=== PATIENT | female | born 1985 | race Caucasian/White ===

== ENCOUNTER 2023-12-18 05:27 | Emergency (ER) | payer OTHER, SELFPAY ==
[2023-12-18 05:29] VITALS: BP 127/88; BMI 30.1
[2023-12-18 05:30] VITALS: BP 127/88
[2023-12-18 06:00] VITALS: BP 121/90
[2023-12-18] MEDS: NSS 1000 IV (06:44)
[2023-12-18 06:49] LABS: % Basophils 0.1 % (0-2); % Eosinophils 1.6 % (0-6); % Immature Granulocytes 0.4 % (0-0.5); % Lymphocytes 14.4 % (20.5-51.1); % Monocytes 6.4 % (1.7-9.3); % Neutrophils 77.1 % (42.2-75.2); Absolute Eosinophils 0.2 10^3/uL (0-0.7); Absolute Lymphocytes 1.4 10^3/uL (1.2-3.4); Absolute Monocytes 0.6 10^3/uL (0.1-0.6); Absolute Neutrophils 7.2 10^3/uL (1.4-6.5); Hematocrit 42.6 % (37.0-47.0); Mean Corp Hgb Conc. 35.2 g/dL (33.0-37.0); Mean Corpuscular Hgb 29.4 pg (27.0-31.0); Mean Corpuscular Volume 83.5 fL (81.0-99.0); Mean Platelet Volume 10.5 fL (7.4-10.4); Nucleated Red Blood Cells % 0 %; Platelet Count 279 10^3/uL (130-400); White Blood Cell Count 9.4 10^3/uL (4.8-10.8)
[2023-12-18 07:01] LABS: HCG, Serum Qualitative Screen Negative
[2023-12-18 07:04] LABS: ALT (SGPT) 13 U/L (0-35); AST (SGOT) 18 U/L (14-36); Albumin 4.7 g/dl (3.5-5.0); Alkaline Phosphatase 46 U/L (38-126); Blood Urea Nitrogen 11 mg/dl (7-17); Carbon Dioxide 24 mmol/L (22-30); Chloride 104 mmol/L (98-107); Estimated Creatinine Clearance 102 ml/min; Glucose 112 mg/dl (70-99); Lipase 58 U/L (23-300); Magnesium 1.7 mg/dl (1.6-2.3); Potassium 4.2 mmol/L (3.5-5.1); Sodium 140 mmol/L (135-145); Total Bilirubin 0.9 mg/dl (0.2-1.3); Total Protein 7.9 g/dl (6.3-8.2); eGFR > 60.00
[2023-12-18 07:06] LABS: COVID-19 Antigen Negative (Negative)
--- NOTE | 2023-12-18 07:10 | ED.GENMED ---
History of Present Illness
General
Chief Complaint: Abdominal Symptoms
Source: patient and family (Mother)
Exam Limitations: none
Time Seen by Provider: 12/18/23 06:04
Nursing documentation reviewed up to this point in time: agreed with
Travel History
Have you had any contact with someone who has COVID-19?: No
Do you have any symptoms of coronavirus? Fever > 100 degrees, chills, cough, shortness of breath, sore throat, loss of taste or smell, muscle aches, or headache?: No
History of Present Illness
History of Present Illness:
38-year-old female with a past medical history of irritable bowel syndrome, anxiety who presents to the emergency department accompanied by her mother for evaluation of abdominal pain with nausea, vomiting, diarrhea. Patient reports onset of
symptoms Monday morning (this morning is day 3 of symptoms). She reports that she woke up with nausea and has had essentially consistent nausea with diffuse abdominal pain since. She reports pain is mostly in the upper abdomen, consistent
pressure pain with occasional cramping. Associated with 8 episodes of nonbloody, nonbilious vomiting. She says she has had greater than 20 episodes of nonbloody diarrhea. She says that symptoms do not seem to be improving and so she came to the
emergency room to be assessed. She has not had any chest pain or shortness of breath. She has not had any urinary symptoms. Denies any vaginal bleeding. She denies any fevers or chills. She does report that she had prior episode of colitis in
the summer associated with diarrhea. Of note, patient reports that she is on Wegovy/semaglutide�she says she was on Wegovy for about 9 months for weight loss and that about a month ago her insurance stopped covering it and so she had been off it
for the past 3 weeks. She says that this past Monday she was started on generic semaglutide for her first dose.
Past History
Past History
ED Past Medical History: Psychiatric (anxiety) and Other (IBS, esophagitis, gastritis)
ED Past Surgical History: Appendectomy
Social History
Tobacco: Non-smoker
Alcohol: Occasional
Drug: None
Personal:
Living: with family
Employment: Employed (teacher)
Family History
Family History: Hypertension
Review of Systems
Review of Systems
All Other Systems: ROS reviewed and negative except as documented in HPI and ROS
Constitutional: Reports fatigue; Denies fever or chills
EENT: Denies sore throat or runny nose
Respiratory: Denies cough or trouble breathing
Cardiac: Denies chest pain or palpitations
ABD/GI: Reports abdominal pain, nausea, vomiting and diarrhea; Denies bloody stools
: Denies dysuria, frequency, flank pain or bleeding
Musculoskeletal: Denies neck pain or back pain
Neurological: Denies dizzy or headache
Phy Exam
Physical Exam
Physical Exam:
General: Awake, alert, oriented x3; no acute distress
Head: Normocephalic, atraumatic
Eyes: Conjunctiva normal, sclera anicteric
Throat: Airway intact, slightly dry mucous membranes
Neck: Trachea midline, supple without meningismus
Lungs: Clear to auscultation bilaterally, no wheezing, rales, rhonchi
Heart: Regular rate and rhythm, no murmurs, gallops, or rubs
Abd: Soft, non distended, mild diffuse tenderness with no palpable masses, no peritoneal signs
Neuro: Cranial nerves grossly intact, speech fluid
Skin: no rash
Extremities: No edema in extremities, equal pulses in all extremities
Scores
Heart Failure Risk
Heart Failure Risk Score: Not Applicable
Heart Score for Chest Pain Patients
STEMI patient?: Not applicable
Withdrawal Assessment of Alcohol
Withdrawal Assessment Completed?: Not applicable
Course
Orders/Labs/Results
Orders:
Orders
12/18/23 06:11
0.9% Sodium Chloride 1000 ml [Nss] 1,000 ml IV BOLUS
Test Result ONCE
12/18/23 06:37
COVID-19 Antigen Urgent
Source: Nasal Swab
Complete Blood Count/With Diff Urgent
Comprehensive Metabolic Panel Urgent
HCG, Serum Qualitative Screen Urgent
Lipase Urgent
Magnesium Urgent
12/18/23 07:08
Electrocardiogram (*1) Urgent
Reason for Study: QTc Monitoring
CT Abd/pel W Iv And Oral Contr Urgent
Comment:
Reason For Exam: abd pain, n/v/d
EKG- Treatment ONCE
Iohexol [Omnipaque] See Protocol PO NOW STA
Morphine Sulfate 4 mg IV NOW STA
Ondansetron Injectable [Zofran] 4 mg IV NOW STA
Abnormal Lab Results
12/18/23
06:37
MPV 10.5 H fL
(7.4-10.4)
Absolute Neuts (auto) 7.2 H 10^3/uL
(1.4-6.5)
Neutrophils % 77.1 H %
(42.2-75.2)
Lymphocytes % 14.4 L %
(20.5-51.1)
Glucose 112 H mg/dl
(70-99)
12/18/23 06:37
12/18/23 06:37
Vital Signs
Initial and Last Documented VS:
Initial Vital Signs
Temp Pulse Resp BP Pulse Ox
36.6 C 84 18 127/88 100
12/18/23 05:29 12/18/23 05:29 12/18/23 05:29 12/18/23 05:29 12/18/23 05:29
Last Documented Vital Signs
Temp Pulse Resp BP Pulse Ox
36.6 C 84 18 115/83 97
12/18/23 05:29 12/18/23 05:29 12/18/23 05:29 12/18/23 09:00 12/18/23 09:30
MDM/Problems Addressed
Differential Diagnosis Includes:
Pancreatitis, gastroenteritis, cholelithiasis/cholecystitis, colitis, gastritis, medication side effect/adverse reaction, bowel obstruction less likely
MDM/Problems Addressed:
38-year-old female with history as documented who was recently started on generic semaglutide 5 days ago after a 3-week interruption in [facility] due to insurance issues; she presents to the emergency today for abdominal pain associate with nausea,
vomiting, diarrhea. Has been ongoing for 48 hours today is day 3 of symptoms. Vital signs are normal. Physical exam as above. Plan to place an IV check labs including a CBC and CMP, lipase. Will check hCG. Check viral swabs. Check CT of the
abdomen pelvis. Will treat pain and nausea. EKG for QTc monitoring. IV fluids for hydration. Reassess after the above.
Labs reviewed: CBC and CMP unremarkable. hCG negative. Lipase normal. Viral swabs negative. CT of the abdomen pelvis shows signs consistent with acute enteritis. Suspect likely viral�she has no recent travel, no recent antibiotics that might
put her at risk for bacterial enteritis. 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 Will plan for supportive care. Advised plenty of fluids, [id number] antidiarrheals, bland diet will prescribe Zofran as needed. She feels comfortable with this
plan. We spoke about return precautions and all questions were answered.
Chronic conditions affecting care:
Irritable bowel syndrome, obesity
*Radiology
Radiology exam reviewed: radiology read reviewed
*Pulse Oximetry
Patient hypoxic: no
*Critical Care Note
Total Time (30-74mins, 75-104mins- exclusive of procedures): Not Applicable
Data Reviewed
Review of Other/Old Records Reveals: Labs and Records
Source: patient and family (Mother)
ED Attending Note
-
Portions of this chart may have been created with voice recognition software.� Occasional wrong word or��sound alike� substitutions may have occurred due to the inherent limitations of voice recognition software.
Discharge Plan
Departure
Patient Disposition: Home (Routine Discharge)
Date of Disposition: 12/18/23
Time of Disposition: 10:44
Patient with high blood pressure during this ER visit?: No
Discharge Problem:
Enteritis
Instructions: Viral gastroenteritis in adults
Prescriptions:
New
ondansetron 4 mg tablet,disintegrating
4 mg PO TIDPRN PRN (Reason: nausea/vomiting) Qty: 20 0RF
dicyclomine 10 mg capsule
10 mg PO BID Qty: 10 0RF
No Action
alprazolam 0.25 MG tablet
0.25 mg PO Q8HPRN PRN (Reason: anxiety) Qty: 14 0RF
cephalexin 500 MG capsule
500 mg PO BID Qty: 14 0RF
albuterol sulfate 2.5 MG/3 ML solution for nebulization
2.5 mg inhalation R Q4HPRN PRN (Reason: wheezing, shortness of breath) Qty: 20 0RF
metronidazole 500 mg tablet
500 mg PO Q8H 7 Days Qty: 21 0RF
levofloxacin 500 mg tablet
500 mg PO DAILY Qty: 7 0RF
Probiotic 10 billion cell capsule
10,000 mmu cells PO DAILY Qty: 20 0RF
Referrals:
Hyacinth Belcher NP [Family Provider] - Call in 1-3 days for appt
Activity Restrictions/Additional Instructions:
Thank you for visiting the Emergency Department at [facility].
1. Please schedule a follow up appointment as directed. Call first thing tomorrow morning to make an appointment.
2. If indicated, please take your medications as instructed and indicated on discharge paperwork.
3. If any of your symptoms do not improve, or persist, or become more severe within 6-12 hours, please return to the emergency department for further care.
4. Please return to the emergency department if you develop a headache, neck pain/stiffness, fever greater than 100.4F, chest pain, shortness of breath, persistent nausea, vomiting, slurred speech, difficulty walking, numbness/tingling, weakness,
signs of infection or any other symptoms that are worrisome to you.
Please call [phone] if you have any questions.
Interventions
Interventions:
*Risk Screen - Suicide Last Done: 12/18/23 05:29
*General Assessment Last Done: 12/18/23 05:29
*Neglect/Abuse Screening Last Done: 12/18/23 05:29
ED- Fall Risk Assessment Last Done: 12/18/23 05:40
*ED COVID-19 Vaccine History Last Done: 12/18/23 05:29
EN-Ktqjor-Edjgvsfnmg Assessment Last Done: 12/18/23 05:36
Discharge Date and Time
Print Language: GUINEAN
[2023-12-18] MEDS: OMNIPAQUE 50 ML PO (07:30)
[2023-12-18] MEDS: MORPHINE SULFATE 4 MG IV (07:31)
[2023-12-18] MEDS: ZOFRAN 4 MG IV (07:31)
[2023-12-18 08:00] VITALS: BP 111/79
[2023-12-18 09:00] VITALS: BP 115/83
== END 2023-12-18 10:59 | disposition home or self-care (01) ==
LOC: EMR 05:27
PROVIDERS: EMERGENCY PHYSICIAN Emergency Medicine; FAMILY PHYSICIAN Nurse Practitioner Family
DX: K52.9 Noninfective gastroenteritis and colitis, unspecified (principal); E66.9 Obesity, unspecified; Z11.52 Encounter for screening for COVID-19
CPT/HCPCS: 99285; 96374; 96375; 96361; 74177; 80053; 83690; 83735; 84703; 85025; 87811; 93005; Q9967

== ENCOUNTER → 2024-10-02 16:50 | Outpatient (REF) | payer OTHER, SELFPAY | LOC: WDC 16:50 | PROVIDERS: ATTENDING PHYSICIAN Nurse Practitioner Adult Health; FAMILY PHYSICIAN Nurse Practitioner Family | DX: Z12.31 Encounter for screening mammogram for malignant neoplasm of breast (principal); Z91.89 Other specified personal risk factors, not elsewhere classified; R92.2 Inconclusive mammogram | CPT/HCPCS: 77063; 77067 ==

== ENCOUNTER → 2025-05-13 19:35 | Outpatient (REF) | payer OTHER, SELFPAY | LOC: MRI 3T 19:35 | PROVIDERS: ATTENDING PHYSICIAN Nurse Practitioner Adult Health; FAMILY PHYSICIAN Nurse Practitioner Family | DX: R92.2 Inconclusive mammogram (principal); Z91.89 Other specified personal risk factors, not elsewhere classified | CPT/HCPCS: 77049; A9585 ==